=== PATIENT | male | born 1970 | race Caucasian/White ===

== ENCOUNTER 2021-09-24 08:46 | Outpatient (CLI) | payer SELFPAY ==
--- NOTE | 2021-09-24 08:58 | ECHOCS_ITS ---
Reason For Study: Murmur Procedure This was a 2D Doppler, Color Flow transthoracic echocardiogram. Contrast injection was performed. Exam performed in department. Left Ventricle Normal LV size. Left ventricular systolic function is normal. Normal diastology for age. No regional wall motion abnormalities noted. Right Ventricle Normal RV size. Normal systolic function. Atria Normal left atrium. Normal right atrium. Mitral Valve Normal mitral valve. Tricuspid Valve Normal tricuspid valve. Mild (1+) tricuspid valve insufficiency. Pulmonary artery systolic pressure is 26 mmHg. Aortic Valve Normal aortic valve. Trisinus/trileaflet aortic valve. Pulmonic Valve Normal pulmonic valve. Great Vessels Normal aortic root. The pulmonary artery is normal size. Normal inferior vena cava. Pericardium/Pleural No pericardial effusion. Medication Diluted definity 4ml given slow IV push to enhance endocardial definition. MMode/2D Measurements & Calculations LVIDd: 4.8 cm IVSd: 1.2 cm Ao root diam: 3.4 cm LVIDs: 3.3 cm LVPWd: 1.2 cm RVDd: 3.4 cm FS: 30.8 % LAV(MOD-bp): 57.7 ml LVAd ap4: 31.2 cm2 SV(MOD-sp4): 62.0 ml LAV(MOD-bp) Indexed: 24.9 ml/m2 LVLd ap4: 8.4 cm LAV(MOD-sp2): 50.6 ml EDV(MOD-sp4): 94.1 ml LAV(MOD-sp4): 55.9 ml EDV(sp4-el): 98.1 ml LVAs ap4: 15.9 cm2 LVLs ap4: 6.7 cm ESV(MOD-sp4): 32.1 ml ESV(sp4-el): 32.0 ml EF(MOD-sp4): 65.9 % EF(sp4-el): 67.4 % SV(sp4-el): 66.1 ml LA A4 area: 20.0 cm2 LA dimension(2D): 3.8 cm RA A4 area: 15.5 cm2 Doppler Measurements & Calculations MV E max gordon: 74.4 cm/sec Lat Peak E' Gordon: 9.6 cm/sec Med Peak E' Gordon: 6.7 cm/sec MV A max gordon: 59.6 cm/sec E/E' lat: 7.7 E/E' med: 11.1 MV E/A: 1.2 Ao V2 max: 118.1 cm/sec LV V1 max: 100.4 cm/sec PA V2 max: 95.8 cm/sec Ao max P.6 mmHg LV V1 max P.0 mmHg Ao V2 mean: 81.1 cm/sec Ao mean P.9 mmHg Ao V2 VTI: 22.8 cm TR max gordon: 235.3 cm/sec TR max P.1 mmHg ECHO/Echo Complete W/ Contrast Interpretation Summary Normal LV size. Left ventricular systolic function is normal. No regional wall motion abnormalities noted. Contrast injection was performed. Structurally normal valves. Ordering Physician: Yaron Massey Referring Physician: Yaron Massey Performed By: Tami Carter, MIKE, RVT
== END 2021-09-24 23:59 | disposition home or self-care (01) ==
LOC: CVS 08:55
PROVIDERS: PCP Physician Assistant; Visit Provider Physician Assistant
DX: R01.1 Cardiac murmur, unspecified (principal)
CPT/HCPCS: 93306; Q9957; A4216; C8929